=== PATIENT | male | born 1960 | race Caucasian/White ===

== ENCOUNTER → 2016-07-05 | Outpatient (CLI) | payer OTHER ==
[2016-07-05 13:05] LABS: Basophils # (auto) 0 uL; Basophils % (auto) 0.4 % (0.0-2.0); Eosinophils # (auto) 0.2 uL; Eosinophils % (auto) 3.4 % (0.0-7.0); Hematocrit 45.5 % (41.0-53.0); Hemoglobin 15.2 g/dL (13.5-17.5); Lymphocytes # (auto) 2.1 uL; Lymphocytes % (auto) 36.6 % (10.0-50.0); Mean Corpuscular Hemoglobin 31.1 pg (28.0-32.0); Mean Corpuscular Hgb Conc. 33.3 g/dL (32.0-36.0); Mean Corpuscular Volume 93.4 fL (80.0-100.0); Mean Platelet Volume 8.5 fL (7.4-10.4); Monocytes # (auto) 0.6 uL; Monocytes % (auto) 10.7 % (0.0-12.0); Neutrophils # (auto) 2.9 uL; Neutrophils % (auto) 48.9 % (37.0-80.0); Platelet Count (auto) 243 10^3/uL (140-450); Red Cell Distribution Width 13.7 % (11.6-16.0); White Blood Cell 5.9 10^3/uL (4.4-10.8)
[2016-07-05 13:08] LABS: Urine Bilirubin Negative (Negative); Urine Blood Negative /uL (Negative); Urine Color Yellow (Yellow); Urine Glucose Normal (Normal); Urine Ketone Negative (Negative); Urine Nitrite Negative (Negative); Urine Urobilinogen Normal (Negative); Urine pH 5.5 (5.0-8.0)
[2016-07-05 13:23] LABS: Albumin 4.3 g/dL (3.4-5.0); BUN/Creatinine Ratio 18.9; Potassium 3.8 mmol/L (3.5-5.1)
[2016-07-05 13:26] LABS: Bilirubin, Total 0.6 mg/dL (0.2-1.0); Total Protein 8.5 g/dL (6.4-8.2)
[2016-07-05 13:53] LABS: Bilirubin, Direct 0.2 mg/dL (0-0.2)
== END | disposition home or self-care (01) ==
LOC: LAB 09:03
PROVIDERS: ATTEND Internal Medicine Cardiovascular Disease
DX: I10 Essential (primary) hypertension (principal); E78.00 Pure hypercholesterolemia, unspecified; K74.1 Hepatic sclerosis; E11.9 Type 2 diabetes mellitus without complications; R97.20 Elevated prostate specific antigen [PSA]; R53.81 Other malaise; E03.9 Hypothyroidism, unspecified; D64.9 Anemia, unspecified; E55.9 Vitamin D deficiency, unspecified; N39.0 Urinary tract infection, site not specified
CPT/HCPCS: 36415; 80048; 80061; 80076; 81003; 82306; 83036; 84153; 84403; 84443; 85025

== ENCOUNTER → 2016-08-02 | Outpatient (CLI) | payer OTHER | END | disposition home or self-care (01) | LOC: LAB 08:55 | PROVIDERS: ATTEND Internal Medicine Cardiovascular Disease | DX: R53.81 Other malaise (principal) | CPT/HCPCS: 83001; 84402; 84403 ==

== ENCOUNTER → 2017-01-27 | Outpatient (CLI) | payer BC ==
[2017-01-27 13:05] LABS: Basophils # (auto) 0.1 uL; Basophils % (auto) 1.1 % (0.0-2.0); Eosinophils # (auto) 0.2 uL; Eosinophils % (auto) 2.7 % (0.0-7.0); Hematocrit 45.3 % (41.0-53.0); Hemoglobin 15.5 g/dL (13.5-17.5); Lymphocytes # (auto) 2.1 uL; Lymphocytes % (auto) 34.1 % (10.0-50.0); Mean Corpuscular Hemoglobin 33.4 pg (28.0-32.0); Mean Corpuscular Hgb Conc. 34.2 g/dL (32.0-36.0); Mean Corpuscular Volume 97.9 fL (80.0-100.0); Monocytes # (auto) 0.7 uL; Monocytes % (auto) 10.9 % (0.0-12.0); Neutrophils # (auto) 3.1 uL; Neutrophils % (auto) 51.2 % (37.0-80.0); Nucleated Red Blood Cells % 0.2 %; Platelet Count (auto) 238 10^3/uL (140-450); Red Blood Cells 4.63 10^6/uL (4.5-5.90); Red Cell Distribution Width 13.8 % (11.8-14.3)
[2017-01-27 13:13] LABS: Urine Blood Negative /uL (Negative); Urine Specific Gravity 1.018 (1.001-1.035)
[2017-01-27 13:44] LABS: Alanine Aminotransferase 88 U/L (16-61); Albumin 4.1 g/dL (3.4-5.0); Alkaline Phosphatase 92 U/L (45-117); Anion Gap 13 (5-15); Aspartate Aminotransferase 50 U/L (15-37); BUN/Creatinine Ratio 18.6; Bilirubin, Direct 0.2 mg/dL (0-0.2); Bilirubin, Total 0.8 mg/dL (0.2-1.0); Blood Urea Nitrogen 18 mg/dL (7-18); Calcium 9.4 mg/dL (8.5-10.1); Carbon Dioxide 23 mmol/L (21-32); Chloride 100 mmol/L (98-107); Cholesterol 202 mg/dL (< 200); GFR African American 103 mL/min; GFR Non-African American 85 mL/min; Glucose 103 mg/dL (74-106); HDL Cholesterol 46 mg/dL (40-59); Potassium 3.7 mmol/L (3.5-5.1); Sodium 136 mmol/L (136-145); Total Protein 8.6 g/dL (6.4-8.2); Triglycerides 454 mg/dL (< 150)
== END | disposition home or self-care (01) ==
LOC: LAB 08:28
PROVIDERS: ATTEND Internal Medicine Cardiovascular Disease
DX: I10 Essential (primary) hypertension (principal); E11.9 Type 2 diabetes mellitus without complications; E55.9 Vitamin D deficiency, unspecified; E78.00 Pure hypercholesterolemia, unspecified; K74.1 Hepatic sclerosis; R97.20 Elevated prostate specific antigen [PSA]; R53.81 Other malaise; E03.9 Hypothyroidism, unspecified; D64.9 Anemia, unspecified; N39.0 Urinary tract infection, site not specified
CPT/HCPCS: 36415; 80048; 80061; 80076; 81003; 82306; 83036; 84153; 84403; 84443; 85025

== ENCOUNTER → 2017-02-24 | Outpatient (CLI) | payer BC ==
[2017-02-24 15:27] LABS: Alkaline Phosphatase 78 U/L (45-117); Anion Gap 12 (5-15); Aspartate Aminotransferase 29 U/L (15-37); BUN/Creatinine Ratio 21.1; Bilirubin, Total 0.4 mg/dL (0.2-1.0); Blood Urea Nitrogen 20 mg/dL (7-18); Calcium 9.7 mg/dL (8.5-10.1); Carbon Dioxide 27 mmol/L (21-32); Chloride 102 mmol/L (98-107); Cholesterol 183 mg/dL (< 200); GFR African American 105 mL/min; GFR Non-African American 87 mL/min; Glucose 128 mg/dL (74-106); HDL Cholesterol 39 mg/dL (40-59); Potassium 4.3 mmol/L (3.5-5.1); Sodium 141 mmol/L (136-145); Total Protein 8.2 g/dL (6.4-8.2); Triglycerides 576 mg/dL (< 150)
== END | disposition home or self-care (01) ==
LOC: LAB 08:49
PROVIDERS: ATTEND Internal Medicine Cardiovascular Disease
DX: I10 Essential (primary) hypertension (principal); E78.00 Pure hypercholesterolemia, unspecified
CPT/HCPCS: 36415; 80053; 80061

== ENCOUNTER → 2017-05-04 | Outpatient (CLI) | payer OTHER, BC ==
[2017-05-04 13:06] LABS: Cholesterol 193 mg/dL (< 200); HDL Cholesterol 46 mg/dL (40-59); Triglycerides 438 mg/dL (< 150)
== END | disposition home or self-care (01) ==
LOC: LAB 08:09
PROVIDERS: ATTEND Internal Medicine Cardiovascular Disease
DX: E78.00 Pure hypercholesterolemia, unspecified (principal)
CPT/HCPCS: 36415; 80061

== ENCOUNTER → 2017-08-29 | Outpatient (CLI) | payer OTHER, BC ==
[2017-08-29 12:28] LABS: Alanine Aminotransferase 60 U/L (16-61); Albumin 3.8 g/dL (3.4-5.0); Alkaline Phosphatase 77 U/L (45-117); Aspartate Aminotransferase 34 U/L (15-37); Bilirubin, Direct < 0.1 mg/dL (0-0.2); Bilirubin, Total 0.5 mg/dL (0.2-1.0); Cholesterol 211 mg/dL (< 200); HDL Cholesterol 45 mg/dL (40-59); LDL Cholesterol 120 mg/dL (< 100); Total Protein 7.8 g/dL (6.4-8.2); Triglycerides 333 mg/dL (< 150)
== END | disposition home or self-care (01) ==
LOC: LAB 09:03
PROVIDERS: ATTEND Internal Medicine Cardiovascular Disease
DX: E78.5 Hyperlipidemia, unspecified (principal); K74.1 Hepatic sclerosis; E03.9 Hypothyroidism, unspecified
CPT/HCPCS: 36415; 80061; 80076; 84443

== ENCOUNTER → 2017-11-30 | Outpatient (CLI) | payer OTHER, BC ==
[2017-11-30 12:16] LABS: Basophils # (auto) 0.1 uL; Basophils % (auto) 1.1 % (0.0-2.0); Eosinophils # (auto) 0.2 uL; Eosinophils % (auto) 3.1 % (0.0-7.0); Hematocrit 41.1 % (41.0-53.0); Hemoglobin 14.2 g/dL (13.5-17.5); Lymphocytes # (auto) 2.1 uL; Lymphocytes % (auto) 34.9 % (10.0-50.0); Mean Corpuscular Hgb Conc. 34.5 g/dL (32.0-36.0); Mean Corpuscular Volume 98.8 fL (80.0-100.0); Monocytes # (auto) 0.7 uL; Monocytes % (auto) 10.9 % (0.0-12.0); Neutrophils # (auto) 3.1 uL; Nucleated Red Blood Cells % 0.8 %; Platelet Count (auto) 257 10^3/uL (140-450); Red Blood Cells 4.16 10^6/uL (4.5-5.90); Red Cell Distribution Width 13.3 % (11.8-14.3); White Blood Cell 6.1 10^3/uL (4.4-10.8)
[2017-11-30 12:19] LABS: Urine Blood Negative /uL (Negative); Urine Specific Gravity 1.018 (1.001-1.035)
[2017-11-30 12:53] LABS: Alanine Aminotransferase 83 U/L (16-61); Albumin 4.1 g/dL (3.4-5.0); Alkaline Phosphatase 51 U/L (45-117); Anion Gap 12 (5-15); Aspartate Aminotransferase 44 U/L (15-37); BUN/Creatinine Ratio 25.3; Bilirubin, Direct < 0.1 mg/dL (0-0.2); Bilirubin, Total 0.4 mg/dL (0.2-1.0); Blood Urea Nitrogen 25 mg/dL (7-18); Calcium 9.3 mg/dL (8.5-10.1); Carbon Dioxide 24 mmol/L (21-32); Chloride 101 mmol/L (98-107); Cholesterol 182 mg/dL (< 200); GFR African American 100 mL/min; GFR Non-African American 83 mL/min; Glucose 116 mg/dL (74-106); HDL Cholesterol 49 mg/dL (40-59); LDL Cholesterol 109 mg/dL (< 100); Potassium 3.7 mmol/L (3.5-5.1); Sodium 137 mmol/L (136-145); Total Protein 8.4 g/dL (6.4-8.2); Triglycerides 217 mg/dL (< 150); Uric Acid 9.9 mg/dL (3.5-7.2)
== END | disposition home or self-care (01) ==
LOC: LAB 08:36
PROVIDERS: ATTEND Internal Medicine Cardiovascular Disease
DX: E78.5 Hyperlipidemia, unspecified (principal); K74.1 Hepatic sclerosis; I10 Essential (primary) hypertension; C61 Malignant neoplasm of prostate; E11.9 Type 2 diabetes mellitus without complications; E55.9 Vitamin D deficiency, unspecified; E03.9 Hypothyroidism, unspecified; M10.9 Gout, unspecified; N39.0 Urinary tract infection, site not specified
CPT/HCPCS: 36415; 80048; 80061; 80076; 81003; 82306; 83036; 84153; 84403; 84443; 84550; 85025

== ENCOUNTER → 2018-04-09 | Outpatient (CLI) | payer OTHER, BC ==
[~2018-04-09] VITALS: Ht 177.8 cm; Wt 120.7 kg
[2018-04-09 12:01] LABS: Chloride 105 mmol/L (98-107); Sodium 136 mmol/L (136-145)
[2018-04-09 12:25] LABS: Anion Gap 16 (5-15); Blood Urea Nitrogen 24 mg/dL (7-18); Calcium 9.6 mg/dL (8.5-10.1); Carbon Dioxide 15 mmol/L (21-32); GFR African American > 60 mL/min; GFR Non-African American > 60 mL/min; Glucose 133 mg/dL (74-106); Uric Acid 5.7 mg/dL (3.5-7.2)
== END | disposition home or self-care (01) ==
LOC: Rad HDHVI 08:06
PROVIDERS: ATTEND Internal Medicine Cardiovascular Disease
DX: I10 Essential (primary) hypertension (principal); E79.0 Hyperuricemia without signs of inflammatory arthritis and tophaceous disease; E78.2 Mixed hyperlipidemia; E11.9 Type 2 diabetes mellitus without complications; M10.9 Gout, unspecified; I48.3 Typical atrial flutter
CPT/HCPCS: 36415; 78452; 80048; 84550; 93017; 96374; A9500

== ENCOUNTER → 2018-08-23 | Outpatient (CLI) | payer OTHER, BC ==
[2018-08-23 11:56] LABS: Basophils # (auto) 0.1 uL; Eosinophils # (auto) 0.2 uL; Eosinophils % (auto) 3.9 % (0.0-7.0); Hematocrit 42.4 % (41.0-53.0); Hemoglobin 13.9 g/dL (13.5-17.5); Lymphocytes # (auto) 2.1 uL; Lymphocytes % (auto) 39.6 % (10.0-50.0); Mean Corpuscular Hemoglobin 32.5 pg (28.0-32.0); Mean Corpuscular Hgb Conc. 32.9 g/dL (32.0-36.0); Mean Corpuscular Volume 98.7 fL (80.0-100.0); Monocytes # (auto) 0.6 uL; Monocytes % (auto) 11.1 % (0.0-12.0); Neutrophils # (auto) 2.3 uL; Neutrophils % (auto) 44.4 % (37.0-80.0); Nucleated Red Blood Cells % 0.2 %; Platelet Count (auto) 212 10^3/uL (140-450); Red Blood Cells 4.29 10^6/uL (4.5-5.90); Red Cell Distribution Width 13.9 % (11.8-14.3); White Blood Cell 5.2 10^3/uL (4.4-10.8)
[2018-08-23 11:58] LABS: Urine Blood Negative /uL (Negative); Urine Specific Gravity 1.025 (1.001-1.035)
[2018-08-23 12:05] LABS: Albumin 3.9 g/dL (3.4-5.0); BUN/Creatinine Ratio 20.9; Calcium 8.9 mg/dL (8.5-10.1); Potassium 3.7 mmol/L (3.5-5.1); Uric Acid 5.4 mg/dL (3.5-7.2)
[2018-08-23 12:09] LABS: Bilirubin, Total 0.3 mg/dL (0.2-1.0); Total Protein 7.9 g/dL (6.4-8.2)
[2018-08-23 12:14] LABS: Free T4 (Free Thyroxine) 0.75 ng/dL (0.89-1.76); Prostate Specific Antigen 2.31 ng/mL (0.0-4.0)
== END | disposition home or self-care (01) ==
LOC: LAB 08:08
PROVIDERS: ATTEND Internal Medicine Cardiovascular Disease
DX: Z00.00 Encounter for general adult medical examination without abnormal findings (principal); E03.9 Hypothyroidism, unspecified; E55.9 Vitamin D deficiency, unspecified; C61 Malignant neoplasm of prostate; E29.1 Testicular hypofunction; D51.9 Vitamin B12 deficiency anemia, unspecified; E11.9 Type 2 diabetes mellitus without complications; N39.0 Urinary tract infection, site not specified; M10.9 Gout, unspecified; Z79.899 Other long term (current) drug therapy
CPT/HCPCS: 36415; 80053; 80061; 81003; 82306; 82607; 83036; 84153; 84403; 84439; 84443; 84550; 85025

== ENCOUNTER → 2019-02-27 | Outpatient (CLI) | payer OTHER, BC ==
[2019-02-27 12:16] LABS: Urine Blood Negative /uL (Negative); Urine Specific Gravity 1.019 (1.001-1.035)
[2019-02-27 12:19] LABS: Basophils # (auto) 0.1 uL; Basophils % (auto) 1.5 % (0.0-2.0); Eosinophils # (auto) 0.6 uL; Eosinophils % (auto) 7.7 % (0.0-7.0); Hematocrit 41.8 % (41.0-53.0); Hemoglobin 14.3 g/dL (13.5-17.5); Lymphocytes # (auto) 2.6 uL; Lymphocytes % (auto) 36.6 % (10.0-50.0); Mean Corpuscular Hemoglobin 33.5 pg (28.0-32.0); Mean Corpuscular Hgb Conc. 34.2 g/dL (32.0-36.0); Mean Corpuscular Volume 98.1 fL (80.0-100.0); Monocytes # (auto) 0.7 uL; Monocytes % (auto) 9.9 % (0.0-12.0); Neutrophils # (auto) 3.2 uL; Neutrophils % (auto) 44.3 % (37.0-80.0); Nucleated Red Blood Cells % 0.5 %; Platelet Count (auto) 205 10^3/uL (140-450); Red Blood Cells 4.26 10^6/uL (4.5-5.90); White Blood Cell 7.2 10^3/uL (4.4-10.8)
[2019-02-27 12:25] LABS: Anion Gap 11 (5-15); Calcium 8.8 mg/dL (8.5-10.1); Carbon Dioxide 24 mmol/L (21-32); Chloride 103 mmol/L (98-107); Potassium 3.9 mmol/L (3.5-5.1); Sodium 138 mmol/L (136-145)
[2019-02-27 12:33] LABS: Alanine Aminotransferase 97 U/L (16-61); Albumin 3.7 g/dL (3.4-5.0); Alkaline Phosphatase 78 U/L (45-117); Aspartate Aminotransferase 72 U/L (15-37); BUN/Creatinine Ratio 17.8; Bilirubin, Total 0.3 mg/dL (0.2-1.0); Blood Urea Nitrogen 16 mg/dL (7-18); Cholesterol 164 mg/dL (< 200); GFR African American 111 mL/min; GFR Non-African American 92 mL/min; Glucose 165 mg/dL (74-106); HDL Cholesterol 38 mg/dL (40-59); Total Protein 8.1 g/dL (6.4-8.2); Triglycerides 414 mg/dL (< 150); Uric Acid 4.6 mg/dL (3.5-7.2)
[2019-02-27 12:37] LABS: Free T4 (Free Thyroxine) 1.09 ng/dL (0.89-1.76); Prostate Specific Antigen 2.46 ng/mL (0.0-4.0)
== END | disposition home or self-care (01) ==
LOC: LAB 08:14
PROVIDERS: ATTEND Internal Medicine Cardiovascular Disease
DX: Z00.00 Encounter for general adult medical examination without abnormal findings (principal); E11.40 Type 2 diabetes mellitus with diabetic neuropathy, unspecified; M10.9 Gout, unspecified; K90.9 Intestinal malabsorption, unspecified; C61 Malignant neoplasm of prostate; E29.1 Testicular hypofunction; N39.0 Urinary tract infection, site not specified; E03.9 Hypothyroidism, unspecified; D51.9 Vitamin B12 deficiency anemia, unspecified; Z79.899 Other long term (current) drug therapy
CPT/HCPCS: 36415; 80053; 80061; 81003; 82306; 82607; 83036; 84153; 84403; 84439; 84443; 84550; 85025

== ENCOUNTER → 2020-04-23 | Outpatient (CLI) | payer OTHER, BC ==
[~2020-04-23] VITALS: Ht 177.8 cm; Wt 120.2 kg
[~2020-04-23] MED LIST: ADENOSINE 101 MG in GIVE UN-DILUTED 0 ML IV ONE; ADENOSINE 90 MG/30 ML INJ IV ONE
[2020-04-23 13:16] LABS: Basophils # (auto) 0.1 10 ^3/uL (0-0.2); Basophils % (auto) 1.2 % (0.0-2.0); Eosinophils # (auto) 0.7 10 ^3/uL (0-0.8); Eosinophils % (auto) 11.1 % (0.0-7.0); Hematocrit 38.9 % (41.0-53.0); Hemoglobin 13.1 g/dL (13.5-17.5); Lymphocytes # (auto) 1.8 10 ^3/uL (0.4-5.4); Lymphocytes % (auto) 29.4 % (10.0-50.0); Mean Corpuscular Hemoglobin 32.4 pg (28.0-32.0); Mean Corpuscular Hgb Conc. 33.7 g/dL (32.0-36.0); Mean Corpuscular Volume 96.3 fL (80.0-100.0); Monocytes # (auto) 0.5 10 ^3/uL (0-1.3); Monocytes % (auto) 8.2 % (0.0-12.0); Neutrophils # (auto) 3.1 10 ^3/uL (1.6-8.6); Neutrophils % (auto) 50.1 % (37.0-80.0); Nucleated Red Blood Cells % 0.2 %; Platelet Count (auto) 214 10^3/uL (140-450); Red Blood Cells 4.04 10^6/uL (4.5-5.90); Red Cell Distribution Width 16.5 % (11.8-14.3); White Blood Cell 6.2 10^3/uL (4.4-10.8)
[2020-04-23 13:20] LABS: Urine Blood Negative /uL (Negative); Urine Specific Gravity 1.006 (1.001-1.035)
[2020-04-23 13:29] LABS: Potassium 3.7 mmol/L (3.5-5.1)
[2020-04-23 13:36] LABS: Albumin 3.9 g/dL (3.4-5.0); Bilirubin, Total 0.3 mg/dL (0.2-1.0); Calcium 9.4 mg/dL (8.5-10.1); Total Protein 8.4 g/dL (6.4-8.2); Uric Acid 5.2 mg/dL (3.5-7.2)
[2020-04-23 13:52] LABS: Free T4 (Free Thyroxine) 0.76 ng/dL (0.89-1.76); Prostate Specific Antigen 3.25 ng/mL (0.0-4.0)
== END | disposition home or self-care (01) ==
LOC: Rad HDHVI 08:15
PROVIDERS: ATTEND Internal Medicine Cardiovascular Disease
DX: C61 Malignant neoplasm of prostate (principal); D51.3 Other dietary vitamin B12 deficiency anemia; I10 Essential (primary) hypertension; E11.9 Type 2 diabetes mellitus without complications; E55.9 Vitamin D deficiency, unspecified; D64.9 Anemia, unspecified; R00.2 Palpitations; R53.1 Weakness; R30.0 Dysuria; E78.5 Hyperlipidemia, unspecified; Z82.49 Family history of ischemic heart disease and other diseases of the circulatory system
CPT/HCPCS: 36415; 78452; 80053; 80061; 81003; 82306; 82607; 83036; 84153; 84403; 84439; 84443; 84550; 85025; 93005; 96374; 96375; A9500; J0153